=== PATIENT | male | born 1970 | race Two or more races ===

== ENCOUNTER 2018-06-19 20:00 | Emergency (ER) | payer OTHER ==
[2018-06-19 20:19] VITALS: BP 146/74
[2018-06-19] MEDS ORDERED: Aspirin 81 mg CHEW TAB* 81 MG TAB.CHEW PO ONE (20:40)
--- NOTE | 2018-06-19 20:48 | UC ---
Cardiac HPI - HPI Summary HPI Summary: Onset of left sided chest pain described as pressure last night after returning from work. Denies any unusual activity that day. Pain is not worse with exertion or movement. He denies shortness of breath, nausea, sweats. It is now radiating down his left arm. - History of Current Complaint Chief Complaint: UCChestPain Stated Complaint: CHEST PAIN Time Seen by Provider: 06/19/18 20:22 Hx Obtained From: Patient, Family/Patient Service Rep - Onset/Duration: Gradual Onset, Lasting Hours, Still Present Timing: Constant Initial Severity: Moderate Current Severity: Moderate Pain Intensity: 8 Chest Pain Location: Left Anterior Character: Pressure/Squeezing Aggravating Factor(s): Nothing Alleviating Factor(s): Nothing Associated Signs & Symptoms: Positive: Chest Pain. Negative: Headaches, Numbness, Tingling, Weakness, Dizziness, SOB, Fever, Nausea/Vomiting, Cough - Allergy/Home Medications Allergies/Adverse Reactions: Allergies Allergy/AdvReac Type Severity Reaction Status Date / Time No Known Allergies Allergy Verified 06/19/18 20:20 Home Medications: Home Medications Famotidine TAB* [Pepcid 20 MG TAB*] 1 tab PO DAILY 06/19/18 [History Confirmed 06/19/18] PMH/Surg Hx/FS Hx/Imm Hx Psychological History: Anxiety - Surgical History Surgical History: Yes Surgery Procedure, Year, and Place: tonsillectomy 2005 - Family History Known Family History: Negative: Cardiac Disease - Social History Alcohol Use: None Substance Use Type: None Smoking Status (MU): Never Smoked Tobacco Review of Systems All Other Systems Reviewed And Are Negative: Yes Constitutional: Positive: Negative Skin: Positive: Negative Respiratory: Positive: Negative Cardiovascular: Positive: Chest Pain Gastrointestinal: Positive: Negative Physical Exam Triage Information Reviewed: Yes Appearance: Well-Appearing, No Pain Distress, Well-Nourished Vital Signs: Initial Vital Signs Temp 98 F 06/19/18 20:13 Pulse 72 06/19/18 20:13 Resp 17 06/19/18 20:13 BP 146/74 06/19/18 20:13 Pulse Ox 99 06/19/18 20:13 Vital Signs Reviewed: Yes Eyes: Positive: Conjunctiva Clear ENT: Positive: Hearing grossly normal Neck: Positive: Supple Respiratory Exam: Normal Cardiovascular Exam: Normal Abdomen Description: Positive: Nontender, Soft Musculoskeletal: Positive: No Edema Neurological: Positive: Alert Psychological: Positive: Age Appropriate Behavior Skin: Negative: Rashes Diagnostics - EKG Cardiac Rate: NL - 68 BPM Cardiac Rhythm: Sinus: Normal Ectopy: None ST Segment: Non-Specific - T WAVE FLATTENING LEAD II, INVERSION III, AVF - Assessment/Plan Course Of Treatment: TO [facility] BY AMBULANCE - Clinical Impression Provider Diagnosis: Chest pain - Physician Notifications Discussed Patient Care With: Joey Del Cid - TO [facility] BY AMBULANCE Time Discussed With Above Provider: 20:45 Instructed by Provider To: MD Will See In ED Discharge - Sign-Out/Discharge Documenting (check all that apply): Patient Departure All imaging exams completed and their final reports reviewed: No Studies - Discharge Plan Condition: Stable Disposition: TRANS HIGHER LVL OF CARE FAC Referrals: Jensen Samaniego MD [Primary Care Provider] - - Billing Disposition and Condition Condition: STABLE Disposition: Trans Higher Lvl of Care Fac
== END 2018-06-19 21:05 | disposition short-term general hospital (02) ==
LOC: UCEAST 20:00
DX: R07.89 Other chest pain (principal)
CPT/HCPCS: 93005; 99213; A9270-GY; G0463

== ENCOUNTER → 2018-06-19 21:22 | Emergency (ER) | payer OTHER ==
--- NOTE | 2018-06-19 22:21 | UC ---
Cardiac HPI - HPI Summary HPI Summary: 47 yo male [place] [facility] [place] with chest pain. He tells me that yesterday he was driving and began to have anterior chest pain. He tried to ignore it and continue about his day. He went for a run and ate dinner, but had no change in his chest pain. He went to bed and woke up this morning with his pain decreased, but still present. Since that time his pain has increased and is worse than yesterday. He went to Urgent Care where EKG changes compared to 2011 were noted. He was subsequently sent to the ED via ambulance. He describes the pain as a tightness and pressure. Pt states that his chest pain is not accompanied by any shortness or breath, dizziness, or palpitations. Not better or worse with activity or rest. He has recently gotten over a "cold". Denies fever, chills, cough, SOB, palpitations, abdominal pain, n/v. He admits to no PMH. FamHx positive for HTN, but not CAD/PR. - History of Current Complaint Chief Complaint: EDChestPainROMI Stated Complaint: CHEST PAIN Time Seen by Provider: 06/19/18 22:21 Hx Obtained From: Patient Onset/Duration: Sudden Onset Initial Severity: Moderate Current Severity: Mild Pain Intensity: 2 - Allergy/Home Medications Allergies/Adverse Reactions: Allergies Allergy/AdvReac Type Severity Reaction Status Date / Time No Known Allergies Allergy Verified 06/19/18 20:20 Home Medications: Home Medications NK [No Home Medications Reported] 06/19/18 [History Confirmed 06/19/18] PMH/Surg Hx/FS Hx/Imm Hx - Additional Past Medical History Additional PMH: None - Surgical History Surgical History: Yes Surgery Procedure, Year, and Place: tonsillectomy 2005 - Family History Known Family History: Negative: Cardiac Disease - Social History Occupation: Employed Full-time Lives: With Family Alcohol Use: None Substance Use Type: None Smoking Status (MU): Never Smoked Tobacco Review of Systems All Other Systems Reviewed And Are Negative: Yes Constitutional: Positive: Negative Skin: Positive: Negative Eyes: Positive: Negative ENT: Positive: Negative Respiratory: Positive: Negative Cardiovascular: Positive: Chest Pain Gastrointestinal: Positive: Negative Genitourinary: Positive: Negative Motor: Positive: Negative Neurovascular: Positive: Negative Musculoskeletal: Positive: Negative Neurological: Positive: Negative Psychological: Positive: Negative Physical Exam - Summary Physical Exam Summary: GENERAL: NAD. WDWN. Lying comfortably on stretcher. SKIN: No rashes, sores, or open wounds. HEENT: Head: AT/NC Eyes: PERRLA. EOM intact. Conjunctiva clear without inflammation or discharge. Ears: Hearing grossly normal. TMs intact, no bulging, erythema, or edema. Nose: Nasal mucosa pink and moist. NTTP maxillary and frontal sinus. Throat: Posterior oropharynx without exudates, erythema, or tonsillar enlargement. Uvula midline. NECK: Supple. Nontender. No lymphadenopathy. CHEST: CTAB. No r/r/w. No accessory muscle use. Breathing comfortably and in no distress. CV: RRR. Without m/r/g. Pulses intact. Brisk cap refill. ABDOMEN: Soft. NTTP. No distention or guarding. Bowel sounds present MSK: FROM and 5/5 strength throughout. No edema. No chest wall tenderness. NEURO: Alert. PSYCH: Age appropriate behavior. Triage Information Reviewed: Yes Vital Signs: Initial Vital Signs Temp 99.4 F 06/19/18 21:23 Pulse 75 06/19/18 21:23 Resp 18 06/19/18 21:23 BP 145/80 06/19/18 21:23 Pulse Ox 100 06/19/18 21:23 Laboratory Tests 06/19/18 06/19/18 06/19/18 22:31 22:31 22:31 WBC 5.5 RBC 5.06 Hgb 14.7 Hct 45 MCV 88 MCH 29 MCHC 33 RDW 13 Plt Count 194 MPV 6.8 L Neut % (Auto) 70.8 Lymph % (Auto) 19.7 [place] % (Auto) 5.6 Eos % (Auto) 3.4 Baso % (Auto) 0.5 Absolute Neuts (auto) 3.9 Absolute Lymphs (auto) 1.1 Absolute Monos (auto) 0.3 Absolute Eos (auto) 0.2 Absolute Basos (auto) 0 Absolute Nucleated RBC 0 Nucleated RBC % 0 D-Dimer, Quantitative < 200 Sodium 139 Potassium 4.2 Chloride 106 Carbon Dioxide 29 Anion Gap 4 BUN 17 Creatinine 1.05 Est GFR ( Amer) 92.4 Est GFR (Non-Af Amer) 76.4 BUN/Creatinine Ratio 16.2 Glucose 109 H Lactic Acid Calcium 9.6 Magnesium 2.0 Total Bilirubin 1.10 H AST 18 ALT 18 Alkaline Phosphatase 59 CK-MB (CK-2) 1.9 Troponin I 0.00 Total Protein 6.9 Albumin 4.1 Globulin 2.8 Albumin/Globulin Ratio 1.5 06/19/18 22:31 WBC RBC Hgb Hct MCV MCH MCHC RDW Plt Count MPV Neut % (Auto) Lymph % (Auto) [place] % (Auto) Eos % (Auto) Baso % (Auto) Absolute Neuts (auto) Absolute Lymphs (auto) Absolute Monos (auto) Absolute Eos (auto) Absolute Basos (auto) Absolute Nucleated RBC Nucleated RBC % D-Dimer, Quantitative Sodium Potassium Chloride Carbon Dioxide Anion Gap BUN Creatinine Est GFR ( Amer) Est GFR (Non-Af Amer) BUN/Creatinine Ratio Glucose Lactic Acid 0.6 Calcium Magnesium Total Bilirubin AST ALT Alkaline Phosphatase CK-MB (CK-2) Troponin I Total Protein Albumin Globulin Albumin/Globulin Ratio Vital Signs Reviewed: Yes - Assessment/Plan Course Of Treatment: EKG: NSR 63bpm. LVH borderline T abnormalities inferior leads. Slight J point elevation as read by Dr. Luna. CXR: Negative on wet read. HEART score with low risk. His cardiac markers are negative and other labwork WNL. Discussed results with pt. He continues to have mild chest discomfort, but does not want to be admitted for a further workup at this time. Therefore, I will discharge him to f/u with cardiology as an outpatient. Advised to return if his chest pain worsens or if he develops new symptoms such as SOB, dizziness, [place], or palpitations. Pt and voiced understanding and are agreeable with the plan. - Clinical Impression Provider Diagnosis: Chest pain Discharge - Sign-Out/Discharge Documenting (check all that apply): Patient Departure Patient Received Moderate/Deep Sedation with Procedure: No - Discharge Plan Condition: Stable Disposition: HOME Patient Education Materials: Chest Pain (ED) Referrals: Jensen Samaniego MD [Primary Care Provider] - Martin Rivas MD [Medical Doctor] - As Soon As Possible Additional Instructions: If you develop a fever, shortness of breath, chest pain, new or worsening symptoms - please call your PCP or go to the ED. Your blood pressure was slightly elevated at todays visit. Please see your primary provider within 4 weeks for recheck and re-evaluation. Your lab work and exam today were normal and your ekg showed nonspecific changes compared to 2011. Given your personal history, family history, and today 's workup - you are considered low risk for a cardiac event at this time. Please call Cardiology at the number below to schedule a follow up appointment as soon as possible. - Billing Disposition and Condition Condition: STABLE Disposition: Home
[2018-06-19 22:37] LABS: ABS Basophils 0 10^3/ul (0-0.2); ABS Eosinophils 0.2 10^3/ul (0-0.6); ABS Lymphocytes 1.1 10^3/ul (1.0-4.8); ABS Monocytes 0.3 10^3/ul (0-0.8); ABS Neutrophils 3.9 10^3/ul (1.5-7.7); ABS Nucleated RBC 0 10^3/ul; Eosinophil % 3.4 %; Hematocrit 45 % (42-52); Hemoglobin 14.7 g/dl (14.0-18.0); Lymphocyte % 19.7 %; Mean Corpuscular HGB Conc 33 g/dl (31-36); Mean Corpuscular Hemoglobin 29 pg (27-31); Mean Corpuscular Volume 88 fL (80-94); Mean Platelet Volume 6.8 fL (7.4-10.4); Nucleated Red Blood Cells % 0; Platelet Count 194 10^3/ul (150-450); Red Blood Count 5.06 10^6/ul (4.00-5.40); Red Cell Distribution Width 13 % (10.5-15); White Blood Count 5.5 10^3/ul (3.5-10.8)
[2018-06-19 22:54] LABS: Albumin 4.1 g/dL (3.2-5.2); Albumin/Globulin Ratio 1.5 (1-3); BUN/Creatinine Ratio 16.2 (8-20); Calcium 9.6 mg/dL (8.6-10.3); EGFR African American 92.4 (>60); EGFR Non-African American 76.4 (>60); Globulin 2.8 g/dL (2-4); Potassium 4.2 mmol/L (3.5-5.0); Total Bilirubin 1.1 mg/dL (0.2-1.0); Total Protein 6.9 g/dL (6.4-8.9)
[2018-06-19 22:58] LABS: CKMB ng/mL 1.9 ng/mL (0.6-6.3)
[2018-06-20 00:12] VITALS: BP 127/67
== END | disposition home or self-care (01) ==
LOC: ED 21:22
DX: R07.9 Chest pain, unspecified (principal)
CPT/HCPCS: 36415; 71045; 80053; 82553; 83605; 83735; 84484; 85025; 85379; 93005; 99283